=== PATIENT | male | born 1980 | race Caucasian/White ===

== ENCOUNTER 2021-12-06 19:45 | Inpatient (IN) | payer OTHER ==
[~2021-12-06] VITALS: Ht 167.6 cm; Wt 100.0 kg
[2021-12-06] MEDS ORDERED: MAGNESIUM HYDROXIDE SUSPENSION 30 ML UDCUP PO ONE (21:30)
[2021-12-06] MEDS ORDERED: ACETAMINOPHEN 325 MG TABLET PO PRN (22:30)
[2021-12-06] MEDS ORDERED: ONDANSETRON HCL 4 MG/2 ML VIAL IVP PRN (22:30)
[2021-12-06] MEDS ORDERED: RISP1TAB48 PO (22:41)
[2021-12-06] MEDS ORDERED: CLAR250T39 PO (22:42)
[2021-12-06] MEDS ORDERED: OMEP20 PO (22:42)
[2021-12-06] MEDS ORDERED: PRAZ1 PO (22:42)
[2021-12-06 22:49] LABS: BASOPHILS % (AUTO) 0.9 % (0.0-2.0); EOSINOPHILS % (AUTO) 1.2 % (1.0-6.0); HEMATOCRIT 45.3 % (41-53); HEMOGLOBIN 15.4 g/dL (13.5-17.5); LYMPHOCYTES # (AUTO) 2.5 K/uL (1.0-4.8); LYMPHOCYTES % (AUTO) 34.1 % (22.0-44.0); MEAN CORPUSCULAR HEMOGLOBIN 30.1 pg (26.0-34.0); MEAN CORPUSCULAR HGB CONC 34.1 G/dL (31.0-37.0); MEAN CORPUSCULAR VOLUME 88 fL (80-100); MONOCYTES # (AUTO) 0.8 K/uL (0.1-1.0); MONOCYTES % (AUTO) 10.9 % (2.0-9.0); NEUTROPHILS # (AUTO) 3.9 K/uL (1.8-7.7); NEUTROPHILS % (AUTO) 52.9 % (40.0-70.0); PLATELET COUNT (AUTO) 326 K/uL (150-450); RED BLOOD CELL COUNT(AUTO) 5.13 MIL/uL (4.50-5.90); RED CELL DISTRIBUTION WIDTH 13.2 % (11.5-14.5)
[2021-12-06 22:58] LABS: ANION GAP 8 mmol/L (8-16); CALCIUM, TOTAL 9.3 mg/dL (8.8-10.5); CARBON DIOXIDE 30 mmol/L (22-29); CHLORIDE 103 mmol/L (98-107); CREATININE 1.05 mg/dL (0.60-1.30); GLUCOSE,RANDOM 91 mg/dL (70-110); SODIUM SERUM 141 mmol/L (136-145); UREA NITROGEN, BLOOD 11 mg/dL (7-18)
[2021-12-06 22:59] LABS: GLOMERULAR FILTR. RATE CALC > 60 mL/min (>60)
[2021-12-06 23:04] LABS: ALANINE AMINOTRANSFERASE 66 U/L (12-78); ALBUMIN 4.2 g/dL (3.4-5.0); ALKALINE PHOSPHATASE 80 U/L (46-116); ASPARTATE AMINOTRANSFERASE 85 U/L (15-37); BILIRUBIN,TOTAL 0.8 mg/dL (0.1-1.0); TOTAL PROTEIN, SERUM 7.6 g/dL (6.4-8.2)
[2021-12-06 23:18] LABS: COVID AG,FIA SOURCE NASOPHARYNGEAL
[2021-12-07] MEDS: HEPARIN SODIUM,PORCINE 5,000 UNITS/ML VIAL SQ SCH ×4 (00:21→23:22)
[2021-12-07 00:28] VITALS: BP 151/84
[2021-12-07 05:25] VITALS: BP 135/82
[2021-12-07] MEDS ORDERED: INFLUENZA VIRUS VACCINE QVS 2022-23 (6MO+)/PF 60 MCG/0.5 ML SYRINGE IM. ONE (07:15)
[2021-12-07 07:43] LABS: AMPHET/METH SCREEN,URINE NEGATIVE (NEGATIVE); BARBITURATE SCREEN, URINE NEGATIVE (NEGATIVE); BENZODIAZEPINES SCREEN,URINE NEGATIVE (NEGATIVE); CANNABINOID SCREEN,URINE NEGATIVE (NEGATIVE); COCAINE SCREEN,URINE NEGATIVE (NEGATIVE); METHADONE SCREEN, URINE NEGATIVE (NEGATIVE); OPIATE SCREEN,URINE NEGATIVE (NEGATIVE)
[2021-12-07 07:44] LABS: PHENCYCLIDINE SCREEN,URINE NEGATIVE (NEGATIVE)
[2021-12-07] MEDS: OMEPRAZOLE 20 MG CAPSULE PO SCH (08:15)
[2021-12-07] MEDS: PRAZOSIN HCL 1 MG CAPSULE PO SCH ×2 (08:21→19:37)
[2021-12-07 08:23] VITALS: BP 128/78
[2021-12-07] MEDS ORDERED: MINERAL OIL 133 ML ENEMA PR ONE (13:30)
[2021-12-07] MEDS ORDERED: DOCUSATE SODIUM 100 MG CAPSULE PO PRN (13:30)
[2021-12-07 16:03] VITALS: BP 135/78
[2021-12-07 20:10] VITALS: BP 127/75
[2021-12-07] MEDS ORDERED: RisperiDONE 1 MG TABLET PO SCH (21:00)
[2021-12-08 04:16] VITALS: BP 111/65
[2021-12-08 07:49] VITALS: BP 113/66
[2021-12-08] MEDS: PRAZOSIN HCL 1 MG CAPSULE PO SCH ×2 (08:17→20:03)
[2021-12-08] MEDS: OMEPRAZOLE 20 MG CAPSULE PO SCH (08:17)
[2021-12-08] MEDS: HEPARIN SODIUM,PORCINE 5,000 UNITS/ML VIAL SQ SCH ×4 (08:17→23:34)
[2021-12-08 19:57] VITALS: BP 118/71
[2021-12-09 04:40] VITALS: BP 107/70
[2021-12-09 07:59] VITALS: BP 128/70
[2021-12-09] MEDS: PRAZOSIN HCL 1 MG CAPSULE PO SCH (08:53)
[2021-12-09] MEDS: OMEPRAZOLE 20 MG CAPSULE PO SCH (08:53)
[2021-12-09] MEDS ORDERED: DOCU-385 PO (12:21)
[2021-12-09 16:00] VITALS: BP 138/61
[2021-12-09] MEDS: HEPARIN SODIUM,PORCINE 5,000 UNITS/ML VIAL SQ SCH (16:04)
== END 2021-12-09 23:25 | DRG 885 ==
LOC: EMS 19:48 → 6S 22:17
PROVIDERS: ADMIT Internal Medicine; ATTEND Internal Medicine
DX: F29 Unspecified psychosis not due to a substance or known physiological condition (principal); R45.851 Suicidal ideations; K21.9 Gastro-esophageal reflux disease without esophagitis; F17.200 Nicotine dependence, unspecified, uncomplicated; K59.00 Constipation, unspecified; E66.9 Obesity, unspecified; F32.9 Major depressive disorder, single episode, unspecified; F41.9 Anxiety disorder, unspecified; Z20.822 Contact with and (suspected) exposure to COVID-19; Z79.899 Other long term (current) drug therapy; Z68.35 Body mass index [BMI] 35.0-35.9, adult; Z71.6 Tobacco abuse counseling
CPT/HCPCS: 80053; 84443; 85025; 99285; G0480; J1644